=== PATIENT | female | born 1985 | race Caucasian/White ===

== ENCOUNTER 2025-01-16 09:38 | Emergency (ER) | payer OTHER, SELFPAY | END 2025-01-16 10:25 | disposition home or self-care (01) | LOC: MADERS 09:38 | DX: H69.92 Unspecified Eustachian tube disorder, left ear (principal); I10 Essential (primary) hypertension; H65.92 Unspecified nonsuppurative otitis media, left ear; K14.6 Glossodynia | CPT/HCPCS: 99283 ==